=== PATIENT | male | born 1975 | race American Indian/Alaskan Native ===

== ENCOUNTER 2016-08-12 11:34 | Emergency (ER) | payer MEDICAID ==
[2016-08-12 11:35] VITALS: BMI 27.2
[2016-08-12 11:48] VITALS: O2SAT 98
--- NOTE | 2016-08-12 11:59 | C.PDOC ---
History Of Present Illness 41 yo male w/PMHx of HTN, pancreatitis come in for evaluation of left knee pain gradually developed for past 2-3 days. Pt reports, pain is localized, severe, worse with weight bearing, touching. Cheri BP noted on triage, pt admits, not compliant with his medication- Norvasc, saying " I dont have it no more". Otherwise, pt denies known direct trauma or injury, fever, chills, headache, dizziness, visual changes, focal deficits, CP, SOB, dyspnea, diaphoresis, palpitation, abd. pain, N/V, denies skin changes, weakness, deformity, sensory or vascular deficits to left leg. Time Seen by Provider: 08/12/16 11:48 Chief Complaint (Nursing): Lower Extremity Problem/Injury History Per: Patient Onset/Duration Of Symptoms: Gradual Severity: Severe Past Medical History Reviewed: Historical Data, Nursing Documentation, Vital Signs Vital Signs: Last Vital Signs Temp 97.8 F 08/12/16 12:42 Pulse 84 08/12/16 12:42 Resp 17 08/12/16 12:42 BP 163/105 H 08/12/16 13:17 Pulse Ox 98 08/12/16 12:42 - Medical History PMH: HTN, Pancreatitis - [facility] Procedures CL REDUC DISLOC-SHOULDER (08/14/13) IMMOBILIZ/WOUND ATTN NEC (08/14/13) INJECT/INFUSE NEC (08/14/13) Family History: States: No Known Family Hx - Social History Hx Tobacco Use: Yes Hx Alcohol Use: Yes Hx Substance Use: Yes (opiates, cannabionoid) - Immunization History Hx Tetanus Toxoid Vaccination: No Hx Influenza Vaccination: No Hx Pneumococcal Vaccination: No Review Of Systems Except As Marked, All Systems Reviewed And Found Negative. Constitutional: Negative for: Fever, Chills ENT: Negative for: Throat Pain Cardiovascular: Negative for: Chest Pain Respiratory: Negative for: Cough, Shortness of Breath Musculoskeletal: Positive for: Other (knee pain) Skin: Negative for: Rash, Bruising Neurological: Negative for: Weakness, Numbness, Altered Mental Status, Headache , Dizziness Physical Exam - Physical Exam Appears: Well, No Acute Distress Skin: Normal Color, Warm, Dry, No Rash, No Ecchymosis Eye(s): bilateral: PERRL Nose: No Flaring Oral Mucosa: Moist Throat: Normal Neck: Supple Cardiovascular: Rhythm Regular, No Friction Rub, No Murmur, No JVD Respiratory: No Stridor, No Wheezing Gastrointestinal/Abdominal: Soft, No Tenderness Back: No CVA Tenderness Extremity: No Normal ROM (moderate discomfort over left knee flexion/extension due to pain.), Tenderness (Moderate diffuse tenderness over Left knee associated with mild edema, warmth. No erythema, no palpable deformity, no calf tenderness.), No Pedal Edema, No Calf Tenderness (B/L lEs.), No Deformity Neurological/Psych: Normal Motor, Normal Sensation, Normal Reflexes ED Course And Treatment O2 Sat by Pulse Oximetry: 98 Pulse Ox Interpretation: Normal - Other Rad Left knee xray X-Ray: Interpreted by Me, Viewed By Me Interpretation: (+) proximal tibia calcification, mild DJD Progress Note: On re-evaluation, pt is afebrile, hemodynamiclay stable. NOn- toxic. Ambulatory in ED with stable gait. Neck: (-) JVD. Lungs: CTA B/L, BS equal B/L. CVS: (+)S1S2, reg. Abd: benign. Neurologicaly intact. XRay of Left knee review and results discussed with patient. Pt has clinical findings c /w Left knee arthralgia r/o gouty arthritis, HTN. Pt request refill on HTN medication. Pt denies any sx associated with HTN. Pt advised and ref. to f/u with PMD, Ortho in 2-3 days for re-eavl. return to ED if any worsening or new changes. Disposition Counseled Patient/Family Regarding: Studies Performed, Diagnosis, Need For Followup, Rx Given - Disposition Referrals: Kang March [Staff Provider] - Disposition: HOME/ ROUTINE Disposition Time: 12:27 Condition: STABLE Additional Instructions: Take medication as prescribed Light duty to Left knee Follow up with PMD and Orthopedist in 2-3 days for re-evaluation. Return to ED if any worsening or new changes. Prescriptions: amLODIPine [Norvasc] 10 mg PO DAILY #30 tab Indomethacin [Indocin] 50 mg PO BID #10 cap oxyCODONE/Acetaminophen [Percocet 5/325 mg Tab] 1 tab PO BID PRN #10 tab PRN Reason: Pain Prednisone [Deltasone] 40 mg PO DAILY #6 tablet Instructions: Gout (ED), Hypertension (ED) - Clinical Impression Clinical Impression: Gout, Hypertension
[2016-08-12] MEDS ORDERED: Oxycodone/Acetaminophen 5/325 mg Tab PO STA (12:01)
[2016-08-12] MEDS ORDERED: Oxycodone/Acetaminophen 5/325 mg Tab ONE (12:13)
[2016-08-12 12:43] VITALS: PULSE 84; RESP 17; TEMP 97.8
[2016-08-12 14:56] VITALS: BP 152/95
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
== END 2016-08-12 14:35 | disposition home or self-care (01) ==
LOC: C.ER 11:34
DX: M10.9 Gout, unspecified (principal); I10 Essential (primary) hypertension; Z72.0 Tobacco use

== ENCOUNTER 2017-09-17 16:15 | Inpatient (IN) | payer MEDICAID ==
[2017-09-17 16:16] VITALS: BMI 27.2
[2017-09-17] MEDS ORDERED: Sodium Chloride 0.9% 1,000 ML IV ONE (17:14)
[2017-09-17] MEDS ORDERED: Iohexol 240 (50 ml) PO STA (17:14)
[2017-09-17] MEDS ORDERED: Sodium Chloride 0.9% 1,000 ML ONE (17:23)
[2017-09-17] MEDS ORDERED: Iohexol 240 (50 ml) ONE (17:23)
[2017-09-17 17:36] LABS: BASO # 0.1 K/uL (0.0-0.2); BASO % 0.3 % (0.0-2.0); EOS # 0.1 K/uL (0.0-0.7); EOS % 0.5 % (0.0-4.0); LYMPH # 3.1 K/uL (1.0-4.3); LYMPH % 19.1 % (20.0-40.0); MEAN CORPUSCULAR HGB CONC 33.7 g/dL (33.0-37.0); MEAN PLATELET VOLUME 8.3 fL (7.2-11.7); MONO # 0.8 K/uL (0.0-0.8); MONO % 5.2 % (0.0-10.0); NEUT # 12.1 K/uL (1.8-7.0); NEUT % 74.9 % (50.0-75.0); NRBC % 0.8 % (0.0-2.0); RBC 5.55 Mil/uL (4.40-5.90); RED CELL DISTRIBUTION WIDTH 12.9 % (11.5-14.5)
[2017-09-17 17:37] LABS: ALB/GLOB RATIO 1.4 (1.0-2.1); ALBUMIN 4.8 g/dL (3.5-5.0); ALT/SGPT 30 U/L (21-72); AST/SGOT 36 U/L (17-59); BLOOD UREA NITROGEN 6 mg/dL (9-20); GFR AFRICAN-AMERICAN > 60; GFR NON-AFRICAN AMERICAN > 60; LIPASE 875 U/L (23-300)
[2017-09-17 17:39] LABS: WHITE BLOOD COUNT 16.2 K/uL (4.8-10.8)
[2017-09-17 17:40] LABS: HEMOGLOBIN 17.2 g/dL (12.0-18.0)
--- NOTE | 2017-09-17 18:01 | C.PDOC ---
History Of Present Illness 42yo male, comes to ER with complaints of epigastric abdominal pain x 2 days. Patient states he was evaluated at his PMD's office and given "a shot" with relief of pain. He states the pain has now returned, is associated with nausea and couple episodes of vomiting. He reports the pain is constant and worse with movement or standing up straight. He reports he has not passed gas and his bowel movement were normal until yesterday, he feels he may be constipated today. Patient denies any fever, chills, or chest pain. He states he had similar symptoms when he had gastritis but states this instance is much worse. Time Seen by Provider: 09/17/17 17:02 Chief Complaint (Nursing): Abdominal Pain History Per: Patient History/Exam Limitations: no limitations Onset/Duration Of Symptoms: Days Current Symptoms Are (Timing): Still Present Location Of Pain/Discomfort: Epigastric Quality Of Discomfort: "Pain" Associated Symptoms: Nausea, Vomiting. denies: Diarrhea, Back Pain, Chest Pain Past Medical History Reviewed: Historical Data, Nursing Documentation, Vital Signs Vital Signs: Last Vital Signs Temp 98.3 F 09/17/17 16:35 Pulse 74 09/17/17 17:31 Resp 20 09/17/17 17:31 BP 172/102 H 09/17/17 17:31 Pulse Ox 98 09/17/17 18:29 - Medical History PMH: HTN, Pancreatitis Surgical History: No Surg Hx - [facility] Procedures CL REDUC DISLOC-SHOULDER (08/14/13) IMMOBILIZ/WOUND ATTN NEC (08/14/13) INJECT/INFUSE NEC (08/14/13) Family History: States: No Known Family Hx - Social History Hx Tobacco Use: Yes Hx Alcohol Use: Yes Hx Substance Use: Yes (opiates, cannabionoid) - Immunization History Hx Tetanus Toxoid Vaccination: No Hx Influenza Vaccination: No Hx Pneumococcal Vaccination: No Review Of Systems Except As Marked, All Systems Reviewed And Found Negative. Constitutional: Negative for: Fever, Chills Cardiovascular: Negative for: Chest Pain Respiratory: Negative for: Shortness of Breath Gastrointestinal: Positive for: Nausea, Vomiting, Abdominal Pain Musculoskeletal: Negative for: Back Pain Physical Exam - Physical Exam Appears: Non-toxic, In Acute Distress Skin: Warm, Dry Head: Atraumatic, Normacephalic Eye(s): bilateral: Normal Inspection Oral Mucosa: Moist Neck: Normal ROM, Supple Chest: Symmetrical Cardiovascular: Rhythm Regular Respiratory: Normal Breath Sounds Gastrointestinal/Abdominal: Soft, Tenderness (epigastric, left sided and suprapubic tenderness.), Distention, No Guarding, No Rebound Back: Normal Inspection Extremity: Normal ROM, No Pedal Edema, No Deformity Neurological/Psych: Oriented x3 ED Course And Treatment - Laboratory Results Result Diagrams: 09/17/17 17:18 09/17/17 17:18 Lab Interpretation: Abnormal (WBC 16.2, Lipase 875) O2 Sat by Pulse Oximetry: 98 (RA) Pulse Ox Interpretation: Normal - Physician Consult Information Physician Contacted: Kaden March Outcome Of Conversation: Patient to be admitted for pancreatitis. Medical Decision Making Medical Decision Making: Impression: Abdominal pain, r/o pancreatitis Plan: -- Labs -- Urinalysis -- CT Abdomen/pelvis w/ contrast -- IV Fluids -- Zofran 4mg IVP Progress: 1746 Labs reviewed, patient with elevated lipase and white count. Case discussed with Dr. March and patient admitted under his service. Disposition - Disposition Disposition: HOSPITALIZED Disposition Time: 18:31 Condition: STABLE - Clinical Impression Clinical Impression: Acute pancreatitis - Scribe Statement The provider has reviewed the documentation as recorded by the Scribe (Ibeth Smith) Provider Attestation: All medical record entries made by the Scribe were at my direction and personally dictated by me. I have reviewed the chart and agree that the record accurately reflects my personal performance of the history, physical exam, medical decision making, and the department course for this patient. I have also personally directed, reviewed, and agree with the discharge instructions and disposition.
[2017-09-17] MEDS ORDERED: Iohexol 300 100 ML IJ ONE (18:16)
--- NOTE | 2017-09-17 20:48 | CT ---
EXAM: CT Abdomen and Pelvis With Intravenous Contrast EXAM DATE/TIME: Exam ordered 09/17/2017 5:15 PM CLINICAL HISTORY: 42 years old, male; Pain; Abdominal pain; Generalized; Additional info: Abd pain TECHNIQUE: Axial computed tomography images of the abdomen and pelvis with intravenous contrast. All CT scans at this facility use at least one of these dose optimization techniques: automated exposure control; mA and/or kV adjustment per patient size (includes targeted exams where dose is matched to clinical indication); or iterative reconstruction. Coronal and sagittal reformatted images were created and reviewed. CONTRAST: 100 mL of omnipaque 320 administered intravenously. COMPARISON: No relevant prior studies available. FINDINGS: Lung bases: Unremarkable. No mass. No consolidation. ABDOMEN: Liver: Unremarkable. No mass. Gallbladder and bile ducts: Unremarkable. No calcified stones. No ductal dilation. Pancreas: Edema is noted within the fat surrounding the pancreatic tail. Small amount of fluid extends along the left paracolic gutter and anterior pararenal space on the left the prostate measures 3 x 4.4 x 4.2 cm. No ductal dilation. Spleen: Unremarkable. No splenomegaly. Adrenals: Unremarkable. No mass. Kidneys and ureters: Unremarkable. No solid mass. No hydronephrosis. Stomach and bowel: Unremarkable. No obstruction. No mucosal thickening. PELVIS: Appendix: No findings to suggest acute appendicitis. Bladder: Unremarkable. No mass. Reproductive: Unremarkable as visualized. ABDOMEN and PELVIS: Intraperitoneal space: Unremarkable. No free air. No significant fluid collection. Bones/joints: No acute fracture. No dislocation. Soft tissues: Unremarkable. Vasculature: Unremarkable. No abdominal aortic aneurysm. Lymph nodes: Unremarkable. No enlarged lymph nodes. IMPRESSION: 1. Pancreatitis. No abscess. No pseudocyst. The portal vein and splenic vein opacify normally
[2017-09-17] MEDS: Dextrose 5%/0.45% NS 1,000 ML IV SCH (22:45)
[2017-09-17] MEDS: HYDROmorphone 0.5 mg/0.5 ml ISec IVP PRN (22:50)
[2017-09-18] MEDS: HYDROmorphone 0.5 mg/0.5 ml ISec IVP PRN ×5 (04:12→21:12)
[2017-09-18] MEDS: Dextrose 5%/0.45% NS 1,000 ML IV SCH ×4 (05:40→21:15)
--- NOTE | 2017-09-18 07:45 | CP.PCM.PN ---
Subjective - Date & Time of Evaluation Date of Evaluation: 09/18/17 Time of Evaluation: 07:45 - Subjective Subjective: Medicine progress note for Dr. March's service Patient is a 42 year old male with PMHx of hypertension and alcohol abuse who presented to the ER with complaint of epigastric abdominal pain. Patient reports he went to his PMD's office on Friday due to epigastric pain and was given a toradol shot, prescription for omeprazole, and a laxative medication he cannot recall. Patient states that his pain did not improve which prompted his ER visit. Patient reports similar presentation approximately one year ago. He states at that time he had been drinking heavily and was diagnosed with pancreatitis. Patient reports that after that episode he decreased his drinking until two weeks ago. Patient states he has been drinking 1/2 pint vodka and two beers daily for the past two weeks. He reports last drink was on 09/14/17. He denies history of withdrawal seizures. Patient currently states abdominal pain has decreased, he denies nausea, vomiting, diarrhea. He reports no bowel movement for two days but denies constipation. Patient also admits to not taking blood pressure medication for several weeks. Objective - Vital Signs/Intake and Output Vital Signs (last 24 hours): Temp Pulse Resp BP Pulse Ox 98.2 F 67 20 173/108 H 97 09/18/17 07:35 09/18/17 07:35 09/18/17 07:35 09/18/17 06:00 09/18/17 07:35 Intake and Output: 09/18/17 09/18/17 06:59 18:59 Intake Total 1200 Output Total 600 Balance 600 - Medications Medications: Current Medications Amlodipine Besylate (Norvasc) 10 mg PO DAILY [facility] Enoxaparin Sodium (Lovenox) 40 mg SC DAILY [facility] Hydromorphone HCl (Dilaudid) 0.5 mg IVP Q4H PRN PRN Reason: Pain, moderate (4-7) Last Admin: 09/18/17 04:12 Dose: 0.5 mg Dextrose/Sodium Chloride (Dextrose 5%/0.45% Ns 1000 Ml) 1,000 mls @ 150 mls/hr IV .Q6H40M [facility] Last Admin: 09/18/17 05:40 Dose: 150 mls/hr Pantoprazole Sodium (Protonix Inj) 40 mg IVP DAILY [facility] Pneumococcal Polyvalent Vaccine (Pneumovax 23 Vaccine) 0.5 ml IM .ONCE ONE Stop: 09/19/17 08:01 - Labs Labs: 09/17/17 17:18 09/17/17 17:18 - Constitutional Appears: No Acute Distress - Head Exam Head Exam: ATRAUMATIC, NORMOCEPHALIC - Eye Exam Eye Exam: EOMI, Scleral icterus (mild b/l) - ENT Exam ENT Exam: Mucous Membranes Moist - Respiratory Exam Respiratory Exam: Clear to Ausculation Bilateral, NORMAL BREATHING PATTERN - Cardiovascular Exam Cardiovascular Exam: +S1, +S2 - GI/Abdominal Exam GI & Abdominal Exam: Soft, Tenderness (epigastric), Normal Bowel Sounds - Extremities Exam Extremities Exam: Normal Inspection. absent: Pedal Edema - Neurological Exam Neurological Exam: Alert, Awake - Psychiatric Exam Psychiatric exam: Normal Affect - Skin Skin Exam: Warm Assessment and Plan - Assessment and Plan (Free Text) Assessment: Acute pancreatitis NPO IVF with N5 1/2 NS @ 150cc/h WBC 16.2 on admission, now 11.8 Dr. Smith, GI, consulted- help appreciated start flagyl 500mg IV q8h reglan 5mg IV q8h Lipase on admission 875, today is 720 CT abdomen: pancreatitis. no abscess, no pseudocyst. portal vein and splenic vein opacify normally (see full report) Hypertension restart home medication norvasc 10mg PO daily Alcohol Abuse thiamine 100mg PO daily, multivitamin daily ativan 1mg IV q4prn withdrawal CIWA/ seizure precautions Prophylactic measure lovenox 40mg sc daily All management as per Dr. March
[2017-09-18 07:54] LABS: URINE CLARITY Clear (Clear); URINE COLOR YELLOW (YELLOW); URINE GLUCOSE (UA) Normal (Normal)
[2017-09-18 07:55] LABS: URINE BILIRUBIN NEGATIVE (NEGATIVE); URINE BLOOD 2+ (NEGATIVE); URINE PROTEIN NEGATIVE (NEGATIVE); URINE UROBILINOGEN Normal mg/dL (0.2-1.0)
[2017-09-18 07:56] LABS: SQUAMOUS EPITHIAL 1 /hpf (0-5); URINE BACTERIA RARE (<OCC); URINE LEUKOCYTE ESTERASE 2+ Leu/uL (Negative)
[2017-09-18 08:05] LABS: HEMOGLOBIN 15.5 g/dL (12.0-18.0); MEAN CELL VOLUME 92.7 fL (80.0-94.0); MEAN CORPUSCULAR HEMOGLOBIN 31.1 pg (27.0-31.0); MEAN CORPUSCULAR HGB CONC 33.5 g/dL (33.0-37.0); MEAN PLATELET VOLUME 8.2 fL (7.2-11.7); RBC 4.99 Mil/uL (4.40-5.90); RED CELL DISTRIBUTION WIDTH 12.7 % (11.5-14.5); WHITE BLOOD COUNT 11.8 K/uL (4.8-10.8)
[2017-09-18 08:49] LABS: ALB/GLOB RATIO 1.4 (1.0-2.1); ALBUMIN 4.1 g/dL (3.5-5.0); ALT/SGPT 27 U/L (21-72); AMYLASE 190 U/L (30-110); AST/SGOT 24 U/L (17-59); BLOOD UREA NITROGEN 5 mg/dL (9-20); CALCIUM 9.2 mg/dl (8.6-10.4); GFR AFRICAN-AMERICAN > 60; GFR NON-AFRICAN AMERICAN > 60; LIPASE 720 U/L (23-300)
[2017-09-18] MEDS ORDERED: Potassium Chloride 20 mEq ER Tab PO ONE (09:10)
[2017-09-18] MEDS: metroNIDAZOLE IV 500 mg/100 ml 500 MG/100 ML BAG IVPB SCH ×2 (09:35→16:39)
[2017-09-18] MEDS: Enoxaparin 40 mg Syringe SC SCH (09:35)
[2017-09-18] MEDS: Multiple Vitamins Tab PO SCH (11:56)
--- NOTE | 2017-09-18 13:55 | PN ---
DATE: 09/18/2017 LOCATION: 369, bed B. SUBJECTIVE: This is a 42-year-old male, seen initially for GI consultation on 09/17/2017 as requested by the admitting MD, reexamined again today with intermittent period of mild abdominal pain, generalized weakness and malaise. He is still n.p.o. No reported chest pain, palpitation, significant shortness of breath, chills or fever. The entire chart is reviewed including but not limited to the most recent lab and radiology study results. Current and the previous medication list, current and the previous medical events, and today's lab showed leukocytosis of 11.8 with normal hemoglobin and hematocrit and the latest lipase with 875. Abdominal and pelvic CAT scan done yesterday, official report is seen indicative of acute pancreatitis. PHYSICAL EXAMINATION: GENERAL: A 42-year-old male awake, alert, orientated. VITAL SIGNS: Afebrile with pulse of 70, respiratory rate 20 to 22, blood pressure of 166/98. HEENT: Showed pale, dry oral mucous membrane. Nonicteric sclerae. LUNGS: Few scattered crepitation. Decreased air entry at bases. HEART: Positive S1 and S2 with increased rate. ABDOMEN: Soft. Bowel sounds are present. No masses or organomegaly. No rebound tenderness or guarding. The patient experienced severe episodes of nausea during my physical examination. EXTREMITIES: Without edema, clubbing, or cyanosis. NEUROLOGICAL: No reported new neurological deficit, sensory or motor. IMPRESSION: 1. Acute pancreatitis, most likely alcohol induced. 2. Poorly-controlled hypertension. 3. Re-exacerbation of peptic ulcer disease. 4. Leukocytosis of unclear etiology. SUGGESTION: 1. Agree with your plan. 2. Lipid profile. 3. Repeat serum lipase, amylase level and keep the patient n.p.o. until it is normal or near normal. Further evaluation with recommendation to follow. 4. If the patient symptoms persist including recurrent episodes of nausea and vomiting, then upper endoscopy to be kept in mind. Otherwise, only medical treatment. 5. May add Reglan IV 5 mg every 8 hours for the following 48 to 72 hours. Franci Stoner MD [facility] # [id number]
[2017-09-19] MEDS: Dextrose 5%/0.45% NS 1,000 ML IV SCH ×5 (00:55→20:12)
[2017-09-19] MEDS: metroNIDAZOLE IV 500 mg/100 ml 500 MG/100 ML BAG IVPB SCH ×3 (01:01→16:20)
[2017-09-19] MEDS: HYDROmorphone 0.5 mg/0.5 ml ISec IVP PRN ×3 (01:15→09:53)
--- NOTE | 2017-09-19 06:40 | CON ---
DATE: 09/17/[address] Stoner to Dr. Kaden March. HISTORY OF PRESENT ILLNESS: I was called for GI consultation by the admitting MD. The patient is seen and fully examined on 09/17/2017 as requested by the admitting MD. The entire chart is reviewed including but not limited to the most recent lab and radiology study result, current and previous medication list, current and previous medical events, allergies to medication list as well as all the available current and previous medical records. Case was discussed with the staff pre and post my GI consultation on 09/17/2017 with the medical team. This is a 42 years old male who was admitted to the hospital through the emergency room due to severe epigastric pain for the last 48 to 72 hours prior to his admission post excessive alcohol intake. No reported active bleeding. No actual chest pain, palpitations, significant shortness of breath, chills or fever. PAST MEDICAL HISTORY: 1. Peptic ulcer disease. 2. Hypertension. 3. Recurrent pancreatitis, which could be related to alcohol intake. CURRENT MEDICATIONS: Both admission medication list reviewed. FAMILY HISTORY: Unknown. SOCIAL HISTORY: Positive for cigarette smoking and excessive alcohol intake. After being admitted to the hospital the patient was found to have leukocytosis of 16.2 with potassium 3.5, decreased BUN and creatinine with serum lipase level above 700 or so. PHYSICAL EXAMINATION: GENERAL: A 42 years old male appeared to be awake, alert. VITAL SIGNS: Afebrile with pulse of 70, respiratory rate 20 to 22, blood pressure of 168/100. HEENT: Showed mildly dry oral mucous membrane. Anicteric sclerae. LYMPH NODES: No lymphadenitis or lymphadenopathy. LUNGS: Few scattered bilateral crepitation with decreased air entry at bases. HEART: Positive S1 and S2. ABDOMEN: Soft with slight generalized tenderness and mild distention. No mass or organomegaly. No rebound tenderness or guarding. RECTAL: The patient refused. EXTREMITIES: Without significant edema, clubbing or cyanosis. IMPRESSION: 1. Reexacerbation of pancreatitis most likely alcohol induced. 2. To rule out reexacerbation of peptic ulcer disease with possible gastric versus duodenal ulcers. 3. Poorly-controlled hypertension. 4. Leukocytosis of unclear etiology. 5. Electrolyte imbalance with hypokalemia. SUGGESTIONS: 1. Agree with your plan. 2. Rehydration. 3. Proton pump inhibitors. 4. Keep n.p.o. until serum lipase and amylase level are normal or less normal. 5. Continue current medication. 6. . 7. Cancer markers. 8. Pain management consultation due to the patient persistent complaint of lower back pain. 9. The patient to be scheduled for upper endoscopy as there is a drop of the hemoglobin and hematocrit. Will discuss the case at length with you. Thank you for letting me to participate in your patient's case management. Franci Stoner MD
--- NOTE | 2017-09-19 06:42 | HP ---
SUBJECTIVE: A 42-year-old man with history of pancreatitis, history of alcohol abuse, who has got severe abdominal pain, increasing pain over the last 3 days. The patient came to the ER, pelvic ultrasound obtained, advised admission for pancreatitis. The patient with hypertension, he is not compliant. PHYSICAL EXAMINATION: GENERAL: The patient is awake, alert. VITAL SIGNS: Blood pressure 170/110, pulse is 90. HEENT: Within normal limits. NECK: Supple. CHEST: Symmetrical. HEART: Regular. ABDOMEN: Soft. EXTREMITIES: No edema. IMPRESSION: Acute pancreatitis, hypertension, abdominal pain, alcohol abuse. At this point, the patient to get bed rest, n.p.o., IV fluid, pain medication. Kaden March MD
--- NOTE | 2017-09-19 07:40 | CP.PCM.PN ---
Subjective - Date & Time of Evaluation Date of Evaluation: 09/19/17 Time of Evaluation: 07:50 - Subjective Subjective: PGY 3 Medicine Progress Note- Dr. March's service Patient seen and examined in no apparent acute distress. Per nursing, patient complained of pruritus. Patient states that he was tolerating clears yesterday. He admits to some abdominal pain which is improved with the pain medication. He admits to passing gas. He has not had a formed bowel movement. He is ambulating. He denies fevers, chills, chest pain , nausea or vomiting at this time. Objective - Vital Signs/Intake and Output Vital Signs (last 24 hours): Temp Pulse Resp BP Pulse Ox 98.6 F 65 20 154/94 H 100 09/19/17 00:00 09/19/17 00:00 09/19/17 00:00 09/19/17 00:00 09/19/17 00:00 Intake and Output: 09/19/17 09/19/17 06:59 18:59 Intake Total 2850 Output Total 750 Balance 2100 - Medications Medications: Current Medications Amlodipine Besylate (Norvasc) 10 mg PO DAILY [facility] Last Admin: 09/18/17 09:34 Dose: 10 mg Enoxaparin Sodium (Lovenox) 40 mg SC DAILY [facility] Last Admin: 09/18/17 09:35 Dose: 40 mg Hydromorphone HCl (Dilaudid) 0.5 mg IVP Q4H PRN PRN Reason: Pain, severe (8-10) Last Admin: 09/19/17 05:40 Dose: 0.5 mg Dextrose/Sodium Chloride (Dextrose 5%/0.45% Ns 1000 Ml) 1,000 mls @ 150 mls/hr IV .Q6H40M [facility] Last Admin: 09/19/17 05:15 Dose: 150 mls/hr Metronidazole (Flagyl) 500 mg in 100 mls @ 100 mls/hr IVPB Q8H [facility] PRN Reason: Protocol Last Admin: 09/19/17 01:01 Dose: 100 mls/hr Lorazepam (Ativan) 1 mg IVP Q4H PRN PRN Reason: Symptoms of alcohol withdrawl Metoclopramide HCl (Reglan) 5 mg IVP Q8H [facility] Last Admin: 09/19/17 01:02 Dose: 5 mg Morphine Sulfate (Morphine) 2 mg IVP Q4 PRN PRN Reason: Pain, moderate (4-7) Multivitamins (Hexavitamin) 1 tab PO DAILY [facility] Last Admin: 09/18/17 11:56 Dose: 1 tab Pantoprazole Sodium (Protonix Inj) 40 mg IVP DAILY [facility] Last Admin: 09/18/17 09:34 Dose: 40 mg Pneumococcal Polyvalent Vaccine (Pneumovax 23 Vaccine) 0.5 ml IM .ONCE ONE Stop: 09/19/17 08:01 Thiamine HCl (Vitamin B1 Tab) 100 mg PO DAILY [facility] Last Admin: 09/18/17 11:56 Dose: 100 mg - Labs Labs: 09/18/17 07:41 09/18/17 07:41 - Constitutional Appears: Non-toxic, No Acute Distress - Head Exam Head Exam: ATRAUMATIC, NORMAL INSPECTION - Eye Exam Eye Exam: EOMI, Normal appearance - ENT Exam ENT Exam: Mucous Membranes Moist - Neck Exam Neck Exam: Full ROM - Respiratory Exam Respiratory Exam: NORMAL BREATHING PATTERN - Cardiovascular Exam Cardiovascular Exam: +S1, +S2 - GI/Abdominal Exam GI & Abdominal Exam: Soft, Tenderness (epigastric to LUQ region), Normal Bowel Sounds. absent: Distended, Guarding, Rigid - Extremities Exam Extremities Exam: Full ROM, Normal Capillary Refill. absent: Tenderness - Back Exam Back Exam: Full ROM - Neurological Exam Neurological Exam: Alert, Awake, Oriented x3 - Psychiatric Exam Psychiatric exam: Normal Affect, Normal Mood - Skin Skin Exam: Dry, Normal Color, Warm Assessment and Plan - Assessment and Plan (Free Text) Assessment: Acute pancreatitis Previously tolerating clears. Now NPO in anticipation for EGD. IVF with D5 1/2 NS @ 150cc/h WBC 16.2 on admission, normalized today Pain Control- Morphine PRN Dr. Smith, GI, consulted - Considerations for EGD today start flagyl 500mg IV q8h reglan 5mg IV q8h Lipase on admission 875, but downtrending. CT abdomen: pancreatitis. no abscess, no pseudocyst. portal vein and splenic vein opacify normally (see full report) Hypertension Norvasc 10mg PO daily Manage pain. Monitor Alcohol Abuse Thiamine 100mg PO daily, multivitamin daily Ativan 1mg IV q4prn withdrawal CIWA/ seizure precautions Prophylactic measure Lovenox 40mg sc daily PPI daily All management as per Dr. March.
[2017-09-19] MEDS ORDERED: Pneumococcal 23-Valent Vaccine IM ONE (08:00)
[2017-09-19 08:08] LABS: BASO % 0.4 % (0.0-2.0); EOS # 0.2 K/uL (0.0-0.7); EOS % 2.3 % (0.0-4.0); HEMOGLOBIN 14.9 g/dL (12.0-18.0); LYMPH # 2.2 K/uL (1.0-4.3); LYMPH % 27.8 % (20.0-40.0); MEAN CELL VOLUME 93.6 fL (80.0-94.0); MEAN CORPUSCULAR HGB CONC 34.2 g/dL (33.0-37.0); MONO # 0.6 K/uL (0.0-0.8); NEUT % 62.5 % (50.0-75.0); NRBC % 0.2 % (0.0-2.0); RBC 4.67 Mil/uL (4.40-5.90); RED CELL DISTRIBUTION WIDTH 12.9 % (11.5-14.5)
[2017-09-19 08:29] LABS: ALB/GLOB RATIO 1.4 (1.0-2.1); ALT/SGPT 29 U/L (21-72); AST/SGOT 24 U/L (17-59); BLOOD UREA NITROGEN 4 mg/dL (9-20); CALCIUM 9.3 mg/dl (8.6-10.4); GFR AFRICAN-AMERICAN > 60; GFR NON-AFRICAN AMERICAN > 60
[2017-09-19] MEDS: Multiple Vitamins Tab PO SCH (09:56)
[2017-09-19] MEDS: Enoxaparin 40 mg Syringe SC SCH (09:56)
[2017-09-19] MEDS ORDERED: DiphenhydrAMINE 50 mg/ml Inj IVP ONE (11:00)
[2017-09-19] MEDS ORDERED: Propofol 10 mg/ml Inj (20 ML) ONE (14:27)
[2017-09-19] MEDS ORDERED: Lactated Ringer's 1,000 ML IV ONE ×2 (14:29)
[2017-09-19 16:20] VITALS: RESP 20
[2017-09-20] MEDS: HYDROmorphone 0.5 mg/0.5 ml ISec IVP PRN (00:06)
[2017-09-20] MEDS: metroNIDAZOLE IV 500 mg/100 ml 500 MG/100 ML BAG IVPB SCH ×2 (01:06→10:00)
[2017-09-20] MEDS: Dextrose 5%/0.45% NS 1,000 ML IV SCH ×2 (04:20→10:00)
[2017-09-20 06:44] LABS: AMYLASE 83 U/L (30-110); LIPASE 503 U/L (23-300)
--- NOTE | 2017-09-20 09:41 | PN ---
DATE: 09/20/2017 LOCATION: [address]. SUBJECTIVE: This is a 42 years old male post upper endoscopy with biopsy seen and examined in rounds. Appeared to be awake, alert, and oriented, somewhat tolerating diet with intermittent period of mild abdominal pain. The entire chart is reviewed including, but not limited to the most recent lab and radiology study results, current and previous medication list, current and previous medical events. Today's lab showed amylase of 83 normal with lipase went down to 503 with increased CEA level to 7.6, which could be secondary to his liver dysfunction secondary to chronic alcoholism. PHYSICAL EXAMINATION: GENERAL: A 42 years old male, awake, alert, oriented. VITAL SIGNS: Afebrile with pulse of 70, respiratory rate 18 to 20, blood pressure 140/84. HEENT: Showed pale, dry, oral mucous membrane, nonicteric sclera. LUNGS: Few scattered crepitation, decreased air entry at bases. HEART: Positive S1 and S2. ABDOMEN: Soft with slight generalized tenderness. No mass or organomegaly. No rebound tenderness or guarding. EXTREMITIES: Without edema, clubbing or cyanosis. IMPRESSION: 1. Acute pancreatitis, most likely alcohol induced. 2. Peptic ulcer disease. 3. Poorly controlled hypertension. SUGGESTIONS: 1. Continue current management. 2. Due to the patient's increased CEA level, however, colonoscopy showed be kept in mind if the patient is to be well prepared during this admission otherwise as outpatient. 3. Repeat lipase level. 4. Further recommendation to follow. Franci Stoner MD
[2017-09-20] MEDS: Enoxaparin 40 mg Syringe SC SCH (10:00)
[2017-09-20] MEDS: Multiple Vitamins Tab PO SCH (10:33)
[2017-09-20 11:54] VITALS: BP 157/98; PULSE 75; TEMP 98; O2SAT 98
--- NOTE | 2017-09-20 11:54 | CP.PCM.PN ---
Subjective - Date & Time of Evaluation Date of Evaluation: 09/20/17 Time of Evaluation: 11:35 - Subjective Subjective: [employer] NOTES Objective - Vital Signs/Intake and Output Vital Signs (last 24 hours): Temp Pulse Resp BP Pulse Ox 98.3 F 74 20 144/92 H 96 09/19/17 23:30 09/19/17 23:30 09/19/17 23:30 09/19/17 23:30 09/19/17 23:30 Intake and Output: 09/20/17 09/20/17 06:59 18:59 Intake Total 3050 Output Total 600 Balance 2450 - Medications Medications: Current Medications Amlodipine Besylate (Norvasc) 10 mg PO DAILY [facility] Last Admin: 09/20/17 10:33 Dose: 10 mg Enoxaparin Sodium (Lovenox) 40 mg SC DAILY [facility] Last Admin: 09/19/17 09:56 Dose: Not Given Hydromorphone HCl (Dilaudid) 0.5 mg IVP Q4H PRN PRN Reason: Pain, severe (8-10) Last Admin: 09/20/17 00:06 Dose: 0.5 mg Dextrose/Sodium Chloride (Dextrose 5%/0.45% Ns 1000 Ml) 1,000 mls @ 150 mls/hr IV .Q6H40M [facility] Last Admin: 09/20/17 04:20 Dose: 150 mls/hr Metronidazole (Flagyl) 500 mg in 100 mls @ 100 mls/hr IVPB Q8H [facility] PRN Reason: Protocol Last Admin: 09/20/17 10:00 Dose: 100 mls/hr Lorazepam (Ativan) 1 mg IVP Q4H PRN PRN Reason: Symptoms of alcohol withdrawl Metoclopramide HCl (Reglan) 5 mg IVP Q8H [facility] Last Admin: 09/20/17 10:33 Dose: Not Given Morphine Sulfate (Morphine) 2 mg IVP Q4 PRN PRN Reason: Pain, moderate (4-7) Last Admin: 09/20/17 04:48 Dose: 2 mg Multivitamins (Hexavitamin) 1 tab PO DAILY [facility] Last Admin: 09/20/17 10:33 Dose: 1 tab Pantoprazole Sodium (Protonix Inj) 40 mg IVP DAILY [facility] Last Admin: 09/20/17 10:30 Dose: 40 mg Thiamine HCl (Vitamin B1 Tab) 100 mg PO DAILY [facility] Last Admin: 09/20/17 10:33 Dose: 100 mg - Labs Labs: 09/19/17 08:02 09/19/17 08:02 Assessment and Plan - Assessment and Plan (Free Text) Assessment: 42 yr old male with pmhx of HTN, admitted with Abdominal pain,N/V/ pancreatitis s/p EGD- see full report for details lipase trending down - [phone] Patient tolerating regular diet seen by Dr. Asad tapia today, cleared for discharge home today with PPI Discharge plan discussed with patient who understands agrees with plan RX given
== END 2017-09-20 13:45 | disposition home or self-care (01) | DRG 204 ==
LOC: C.ER 16:15 → C.9E 17:46 → C.3T 21:07
PROVIDERS: ADMIT Internal Medicine Pulmonary Disease; ATTEND Internal Medicine Pulmonary Disease
PROC: 0DB68ZX Excision of Stomach, Via Natural or Artificial Opening Endoscopic, Diagnostic (ICD-10-PCS; principal; 2017-09-19 14:30)
DX: K85.20 Alcohol induced acute pancreatitis without necrosis or infection (principal); E87.6 Hypokalemia; F10.20 Alcohol dependence, uncomplicated; F17.210 Nicotine dependence, cigarettes, uncomplicated; I10 Essential (primary) hypertension; L29.9 Pruritus, unspecified; K76.89 Other specified diseases of liver; Z87.11 Personal history of peptic ulcer disease; K29.70 Gastritis, unspecified, without bleeding; K20.9 Esophagitis, unspecified

== ENCOUNTER 2018-05-02 14:10 | Emergency (ER) | payer MEDICAID ==
[2018-05-02 14:11] VITALS: BMI 27.2
--- NOTE | 2018-05-02 14:29 | C.PDOC ---
History Of Present Illness 42 year old male with a PMHx of alcoholic pancreatitis, gastric ulcer, esophagitis, and hypertension presents to the ER complaining of abdominal pain for x2 days. Pt reports x2 days ago, he drank cough syrup and believed that triggered his pancreatitis. Pt notes he had pancreatitis before and the current sx feels the same. Pt was seen by PMD, Dr March, and was given Tramadol and "a shot" but sx persists. Pt denies diarrhea, vomiting, dysuria, testicular pain, back pain and fever. Patient had ECG biopsy done on 09/19/17, which showed gastritis, esophagitis, no varices and duodenal ulcer. Patient also smokes a pack a day and uses marijuana. Patient didnt take BP medication today. Time Seen by Provider: 05/02/18 14:27 Chief Complaint (Nursing): Abdominal Pain History Per: Patient History/Exam Limitations: no limitations Onset/Duration Of Symptoms: Days (x3) Current Symptoms Are (Timing): Still Present Location Of Pain/Discomfort: Epigastric Past Medical History Reviewed: Historical Data, Nursing Documentation, Vital Signs Vital Signs: Last Vital Signs Temp 98.7 F 05/02/18 14:15 Pulse 74 05/02/18 14:15 Resp 18 05/02/18 14:15 BP 175/112 H 05/02/18 14:15 Pulse Ox 99 05/02/18 14:15 - Medical History PMH: HTN, Pancreatitis (x3) Surgical History: Hernia Repair - [facility] Procedures CL REDUC DISLOC-SHOULDER (08/14/13) EXCISION OF STOMACH, ENDO, DIAGN (09/17/17) IMMOBILIZ/WOUND ATTN NEC (08/14/13) INJECT/INFUSE NEC (08/14/13) Family History: States: Unknown Family Hx - Social History Hx Tobacco Use: Yes Hx Alcohol Use: Yes Hx Substance Use: Yes (WEEDS) - Immunization History Hx Tetanus Toxoid Vaccination: No Hx Influenza Vaccination: No Hx Pneumococcal Vaccination: No Review Of Systems Except As Marked, All Systems Reviewed And Found Negative. Constitutional: Negative for: Fever Gastrointestinal: Positive for: Abdominal Pain. Negative for: Vomiting, Diarrhea Genitourinary: Negative for: Dysuria, Scrotal Pain Musculoskeletal: Negative for: Back Pain Physical Exam - Physical Exam Appears: Non-toxic, No Acute Distress Skin: Warm, Dry Head: Atraumatic, Normacephalic Eye(s): bilateral: Normal Inspection, EOMI Nose: Normal Oral Mucosa: Moist Neck: Normal ROM, Supple Chest: Symmetrical Cardiovascular: Rhythm Regular Respiratory: Normal Breath Sounds, No Rales, No Rhonchi, No Wheezing Gastrointestinal/Abdominal: Soft, Tenderness (epigastric ), No Guarding, No Rebound Back: No CVA Tenderness Extremity: Normal ROM (x4) Neurological/Psych: Oriented x3, Normal Speech, Normal Cognition ED Course And Treatment - Laboratory Results Result Diagrams: 05/02/18 14:51 05/02/18 14:51 O2 Sat by Pulse Oximetry: 99 (RA) Pulse Ox Interpretation: Normal Progress Note: -- morphine. -- Norvasc. -- protonix. -- toradol. -- IV fluids. On re-evaluation, pt notes pain improved and declines repeating CT since he had one last month. Pt also states he does not want to stay in hospital and requests additional medication and to be d/c. Morphine 2mg was ordered to give to patient. Reassess: Patient reports pain improved. Tolerating PO and is afebrile; request to be d/c. RBC in US noted. No signs of infection. No stones on previous stones. Discuss results of work up of hematuria and elevated wbc to patient. Patient reports he will return if coniditon persists or worsens. Case discussed with Dr Starks, agreed upon plan and discharge. Case discuss with Dr. March and he agrees plan and discharge. Disposition - Disposition Referrals: Kaden March MD [Staff Provider] - Francis Guardado MD [Staff Provider] - Disposition: HOME/ ROUTINE Disposition Time: 17:51 Condition: STABLE Additional Instructions: Follow up with your PMD and urologist in 1-2 days. Return tto ER if symptoms persist or worsen. Instructions: Pancreatitis, Blood in the Urine (Hematuria), Adult (DC) Forms: [employer] (Setswana) - Clinical Impression Clinical Impression: Hematuria, Abdominal pain - PA / [employer] / Resident Statement / has reviewed & agrees with the documentation as recorded. - Scribe Statement The provider has reviewed the documentation as recorded by the Pari Deshpande Do All medical record entries made by the Scribe were at my direction and personally dictated by me. I have reviewed the chart and agree that the record accurately reflects my personal performance of the history, physical exam, medical decision making, and the department course for this patient. I have also personally directed, reviewed, and agree with the discharge instructions and disposition.
[2018-05-02] MEDS ORDERED: Sodium Chloride 0.9% 1,000 ML IV ONE (14:46)
[2018-05-02 14:54] LABS: BASO # 0.2 K/uL (0.0-0.2); BASO % 1.1 % (0.0-2.0); EOS # 0.1 K/uL (0.0-0.7); EOS % 0.8 % (0.0-4.0); HEMOGLOBIN 16.7 g/dL (12.0-18.0); LYMPH # 2.7 K/uL (1.0-4.3); MEAN CELL VOLUME 93.9 fL (80.0-94.0); MEAN CORPUSCULAR HEMOGLOBIN 31.7 pg (27.0-31.0); MEAN CORPUSCULAR HGB CONC 33.8 g/dL (33.0-37.0); MEAN PLATELET VOLUME 8.2 fL (7.2-11.7); MONO # 0.5 K/uL (0.0-0.8); MONO % 3.7 % (0.0-10.0); NEUT # 10.8 K/uL (1.8-7.0); NEUT % 75.4 % (50.0-75.0); RBC 5.26 Mil/uL (4.40-5.90); RED CELL DISTRIBUTION WIDTH 12.9 % (11.5-14.5); WHITE BLOOD COUNT 14.4 K/uL (4.8-10.8)
[2018-05-02 15:06] LABS: ALB/GLOB RATIO 1.4 (1.0-2.1); ALBUMIN 4.9 g/dL (3.5-5.0); ALT/SGPT 26 U/L (21-72); AST/SGOT 30 U/L (17-59); BLOOD UREA NITROGEN 5 mg/dL (9-20); CALCIUM 9.7 mg/dl (8.6-10.4); GFR NON-AFRICAN AMERICAN > 60; LIPASE 218 U/L (23-300)
[2018-05-02] MEDS ORDERED: Sodium Chloride 0.9% 1,000 ML ONE (15:17)
[2018-05-02] MEDS ORDERED: Morphine 4 MG/ML VIAL ONE (15:37)
[2018-05-02 16:51] LABS: SQUAMOUS EPITHIAL 6 /hpf (0-5); URINE BACTERIA RARE (<OCC); URINE BILIRUBIN NEGATIVE (NEGATIVE); URINE BLOOD 3+ (NEGATIVE); URINE CLARITY Hazy (Clear); URINE COLOR Yellow (YELLOW); URINE GLUCOSE (UA) NORMAL (Normal); URINE HYALINE CAST 0-2 /lpf (0-2); URINE LEUKOCYTE ESTERASE TRACE Leu/uL (Negative); URINE PROTEIN NEGATIVE (NEGATIVE); URINE UROBILINOGEN NORMAL mg/dL (0.2-1.0)
[2018-05-02 17:48] VITALS: BP 169/97; PULSE 70; RESP 18; TEMP 98.5
[2018-05-02 17:53] VITALS: O2SAT 99
== END 2018-05-02 18:30 | disposition home or self-care (01) ==
LOC: C.ER 14:10
DX: R31.9 Hematuria, unspecified (principal); R10.9 Unspecified abdominal pain; I10 Essential (primary) hypertension; F17.210 Nicotine dependence, cigarettes, uncomplicated
CPT/HCPCS: 80053; 81001; 83690; 85025; 96361; 96374; 96375; 96376; 99284; C9113; J2270; J2405; J7030

== ENCOUNTER 2018-07-16 12:10 | Emergency (ER) | payer MEDICAID ==
[2018-07-16 12:16] VITALS: BMI 26.5
[2018-07-16 12:18] VITALS: TEMP 98.5
[2018-07-16] MEDS ORDERED: Naproxen 550 mg Tab PO STA (13:04)
[2018-07-16] MEDS ORDERED: Naproxen 550 mg Tab PO ONE (13:11)
--- NOTE | 2018-07-16 14:07 | RAD ---
Date of service: 07/16/2018 PROCEDURE: Radiographs of the left elbow. HISTORY: LEFT ELBOW PAIN R/O FX COMPARISON: No prior. TECHNIQUE: 3 views obtained. FINDINGS: BONES: Normal. No fracture. JOINTS: Arthrosis SOFT TISSUES: Triceps enthesophyte formation suggested. Triceps calcific tendinitis compatible with this. A concomitant calcific olecranon minimal bursitis cannot be excluded. JOINT EFFUSION: No anterior elbow joint effusion suggested. No large posterior olecranon bursitis noted. A minimal posterior olecranon bursitis is still possible. OTHER FINDINGS: None IMPRESSION: No fracture or lytic lesions. Other findings as above.
--- NOTE | 2018-07-16 14:15 | RAD ---
Date of service: 07/16/2018 PROCEDURE: Radiographs of the Chest and Left Ribs. HISTORY: LEFT POSTERIO RIB PAIN AFTER FALL COMPARISON: Comparison chest x-ray from 12/09/2017 is noted. TECHNIQUE: Frontal radiograph of the chest and multiple oblique radiographs of the left ribs were obtained. 4 views obtained. FINDINGS: LEFT RIBS: A tip left 10th rib fracture suggested. The fracture ends are approximately 2 mm. No further displacement suggested. More medial positioned radiolucencyies may represent additional posterior nondisplaced rib fractures-. Assessment here is more problematic due to the overlying confounding bowel gas LUNGS: Clear. PLEURA: No pneumothorax or pleural fluid. CARDIOVASCULAR: Normal cardiac size. No pulmonary vascular congestion. No aortic atherosclerotic calcification present OTHER FINDINGS: Multiple old healed posterior right upper rib fractures are present 3rd 4th 5th in 6 suggested. These are unchanged with the 12/09/2017 study. Well corticated ossifications/calcifications project inferior to the left of scapular coronoid process-subcoracoid bursal loose bodies here are 1 consideration. Glenohumeral joint loose bodies are another. IMPRESSION: Left 10th rib fracture tip more medial distal nondisplaced left 10th rib fractures possible. No pneumothorax or pleural effusion noted. Multiple old right upper rib fractures as referenced above. Appearance is similar. Left sub coracoid bursa loose bodies under glenohumeral joint loose bodies.
[2018-07-16 14:21] VITALS: BP 158/108; PULSE 84; RESP 20; O2SAT 98
--- NOTE | 2018-07-16 14:21 | C.PDOC ---
History Of Present Illness 43-year-old male presents to the ED for evaluation of left elbow pain and left lateral/posterior rib pain. He states that he slipped and fell into his bathroom sink approx one week ago. He denies head injury, loss of consciousness, shortness of breath, chest pain, abdominal pain, nausea/vomiting, dizziness. Time Seen by Provider: 07/16/18 12:24 Chief Complaint (Nursing): Back Pain History Per: Patient History/Exam Limitations: no limitations Onset/Duration Of Symptoms: Days Current Symptoms Are (Timing): Still Present Quality Of Discomfort: "Pain" Severity: Moderate Associated Symptoms: None. denies: Incontinence, New Weakness, New Numbness Additional History Per: Patient Past Medical History Reviewed: Historical Data, Nursing Documentation, Vital Signs Vital Signs: Last Vital Signs Temp 98.5 F 07/16/18 12:16 Pulse 91 H 07/16/18 12:16 Resp 18 07/16/18 12:16 BP 169/97 H 07/16/18 12:16 Pulse Ox 98 07/16/18 12:16 - Medical History PMH: HTN, Pancreatitis (x3) Surgical History: Hernia Repair - [facility] Procedures CL REDUC DISLOC-SHOULDER (08/14/13) EXCISION OF STOMACH, ENDO, DIAGN (09/17/17) IMMOBILIZ/WOUND ATTN NEC (08/14/13) INJECT/INFUSE NEC (08/14/13) Family History: States: No Known Family Hx - Social History Hx Tobacco Use: Yes Hx Alcohol Use: Yes Hx Substance Use: Yes (WEEDS) - Immunization History Hx Tetanus Toxoid Vaccination: No Hx Influenza Vaccination: No Hx Pneumococcal Vaccination: No Review Of Systems Constitutional: Negative for: Fever, Chills Cardiovascular: Negative for: Chest Pain, Palpitations Respiratory: Negative for: Shortness of Breath Gastrointestinal: Negative for: Nausea, Vomiting, Abdominal Pain Musculoskeletal: Positive for: Other (left elbow pain, left lateral/posterior rib pain ) Skin: Negative for: Rash Neurological: Negative for: Weakness, Numbness, Headache, Dizziness, Other (head injury, LOC ) Physical Exam - Physical Exam Appears: Well, Non-toxic, No Acute Distress Skin: Normal Color, Warm, Dry, No Rash Head: Atraumatic, Normacephalic Eye(s): bilateral: Normal Inspection Oral Mucosa: Moist Neck: No Midline Cervical Tenderness, No Paracervical Tenderness, No Step Off Deformity, Supple Chest: Symmetrical, No Deformity, Tenderness (to left lateral and posterior ribs, at approx T10-11 level), No Ecchymosis, No Subcutaneous Emphysema Cardiovascular: Rhythm Regular Respiratory: Normal Breath Sounds, No Rales, No Rhonchi, No Wheezing Gastrointestinal/Abdominal: Normal Exam, Bowel Sounds, Soft, No Tenderness Extremity: Normal ROM, Tenderness ((+) TTP of left elbow without swelling or deformity.), Capillary Refill (< 2sec all digits ), No Deformity, No Swelling Extremity: Bilateral: Normal Color And Temperature, Normal ROM Pulses: Left Radial: Normal, Right Radial: Normal Neurological/Psych: Oriented x3 Gait: Steady ED Course And Treatment O2 Sat by Pulse Oximetry: 98 (on RA) Pulse Ox Interpretation: Normal - Other Rad Ribs and Chest XR X-Ray: Viewed By Me, Read By Radiologist Interpretation: Date of service: 07/16/2018. PROCEDURE: Radiographs of the Chest and Left Ribs. HISTORY: LEFT POSTERIO RIB PAIN AFTER FALL. COMPARISON: Comparison chest x-ray from 12/09/2017 is noted. TECHNIQUE: Frontal radiograph of the chest and multiple oblique radiographs of the left ribs were obtained. 4 views obtained. FINDINGS: LEFT RIBS: A tip left 10th rib fracture suggested. The fracture ends are approximately 2 mm. No further displacement suggested. More medial positioned radiolucencyies may represent additional post erior nondisplaced rib fractures-. Assessment here is more problematic due to the overlying confounding bowel gas. LUNGS: Clear. PLEURA: No pneumothorax or pleural fluid. CARDIOVASCULAR: Normal cardiac size. No pulmonary vascular congestion. No aortic atherosclerotic calcification present. OTHER FINDINGS: Multiple old healed posterior right upper rib fractures are present 3rd 4th 5th in 6 suggested. These are unchanged with the 12/09/2017 study. Well corticated ossifications/calcifications project inferior to the left of scapular coronoid process-subcoracoid bursal loose bodies here are 1 consideration. Glenohumeral joint loose bodies are another. IMPRESSION: Left 10th rib fracture tip more medial distal nondisplaced left 10th rib fractures possible. No pneumothorax or pleural effusion noted. Multiple old right upper rib fractures as referenced above. Appearance is similar. Left sub coracoid bursa loose bodies under glenohumeral joint loose bodies. Left elbow XR X-Ray: Viewed By Me, Read By Radiologist Interpretation: Date of service: 07/16/2018. PROCEDURE: Radiographs of the left elbow. HISTORY: LEFT ELBOW PAIN R/O FX. COMPARISON: No prior. TECHNIQUE: 3 views obtained. FINDINGS: BONES: Normal. No fracture. JOINTS: Arthrosis. SOFT TISSUES: Triceps enthesophyte formation suggested. Triceps calcific tendinitis compatible with this. A concomitant calcific olecranon minimal bursitis cannot be excluded. JOINT EFFUSION: No anterior elbow joint effusion suggested. No large posterior olecranon bursitis noted. A minimal posterior olecranon bursitis is still possible. OTHER FINDINGS: None. IMPRESSION: No fracture or lytic lesions. Other findings as above. Progress Note: Xrays of chest/ribs and left elbow ordered and reviewed. Patient given PO Naprosyn. Reevaluation Time: 14:20 Reassessment Condition: Improved (Patient reassessed, is resting comfortably and pain has improved. Xray of ribs show left 10th rib fx, no PTX. Patient given Rxs for pain medication, and was instructed to follow up with PMD/clinic in 1-2 days. He understands he should return to ED if symptoms worsen.) Disposition Counseled Patient/Family Regarding: Studies Performed, Diagnosis, Need For Followup, Rx Given - Disposition Referrals: [facility] [Outside] Disposition: HOME/ ROUTINE Disposition Time: 14:20 Condition: STABLE Additional Instructions: FOLLOW UP WITH YOUR DOCTOR/CLINIC IN 1-2 DAYS USE MEDICATIONS NEEDED RETURN TO ER IF SYMPTOMS WORSEN Prescriptions: Hydrocodone/Acetaminophen [Hydrocodone-Acetamin 5-325 mg] 1 each PO Q6 PRN #15 tablet PRN Reason: PAIN Naproxen 375 mg PO BID PRN #20 tablet PRN Reason: pain Instructions: Rib Fracture (DC) Forms: [employer] (Slovenian) Print Language: SETSWANA - POA Present On Arrival: Falls Or Trauma - Clinical Impression Clinical Impression: Left rib fracture, Sprain of left elbow - Scribe Statement The provider has reviewed the documentation as recorded by the Scribe (Evelyn Fragoso) Provider Attestation: All medical record entries made by the Scribe were at my direction and personally dictated by me. I have reviewed the chart and agree that the record accurately reflects my personal performance of the history, physical exam, medical decision making, and the department course for this patient. I have also personally directed, reviewed, and agree with the discharge instructions and disposition.
== END 2018-07-16 14:27 | disposition home or self-care (01) ==
LOC: C.ER 12:10
DX: S22.32XA Fracture of one rib, left side, initial encounter for closed fracture (principal); S53.402A Unspecified sprain of left elbow, initial encounter; W01.0XXA Fall on same level from slipping, tripping and stumbling without subsequent striking against object, initial encounter

== ENCOUNTER 2018-07-25 15:54 | Emergency (ER) | payer MEDICAID ==
[2018-07-25 15:55] VITALS: BMI 26.5
[2018-07-25 16:02] VITALS: RESP 18; TEMP 99.4; O2SAT 98
[2018-07-25 17:12] VITALS: BP 158/90; PULSE 82
--- NOTE | 2018-07-25 17:12 | C.PDOC ---
History Of Present Illness 43 y/o male pt presents to the ER c/o paint next to his anus on the left fro x1 day. Pt denies fever, chills, and any other associated sx or complaints at this time. Time Seen by Provider: 07/25/18 16:50 Chief Complaint (Nursing): Abnormal Skin Integrity History Per: Patient History/Exam Limitations: no limitations Onset/Duration Of Symptoms: Days (x1) Current Symptoms Are (Timing): Still Present Past Medical History Reviewed: Historical Data, Nursing Documentation, Vital Signs Vital Signs: Last Vital Signs Temp 99.4 F 07/25/18 15:59 Pulse 78 07/25/18 15:59 Resp 18 07/25/18 15:59 BP 161/113 H 07/25/18 15:59 Pulse Ox 98 07/25/18 15:59 - Medical History PMH: HTN, Pancreatitis (x3) Surgical History: Hernia Repair - [facility] Procedures CL REDUC DISLOC-SHOULDER (08/14/13) EXCISION OF STOMACH, ENDO, DIAGN (09/17/17) IMMOBILIZ/WOUND ATTN NEC (08/14/13) INJECT/INFUSE NEC (08/14/13) Family History: States: Unknown Family Hx - Social History Hx Tobacco Use: Yes Hx Alcohol Use: Yes Hx Substance Use: Yes (WEEDS) - Immunization History Hx Tetanus Toxoid Vaccination: No Hx Influenza Vaccination: No Hx Pneumococcal Vaccination: No Review Of Systems Except As Marked, All Systems Reviewed And Found Negative. Constitutional: Negative for: Fever, Chills Musculoskeletal: Positive for: Other (pain next to anus on the left) Physical Exam - Physical Exam Appears: Non-toxic, No Acute Distress Skin: Warm, Dry Head: Normacephalic Eye(s): bilateral: EOMI Cardiovascular: Rhythm Regular Respiratory: Normal Breath Sounds Rectal: Other (induration of skin next to anus; +swelling, +tenderness; no fluctuance ) Neurological/Psych: Oriented x3, Normal Speech ED Course And Treatment O2 Sat by Pulse Oximetry: 98 (RA) Pulse Ox Interpretation: Normal Progress Note: Plans: -- clindamycin. Pt was instructed to come back if condition worsens Disposition - Disposition Referrals: Kaden March MD [Staff Provider] - Disposition: HOME/ ROUTINE Disposition Time: 17:11 Condition: STABLE Additional Instructions: Follow up with PMD within 1-2 days. Return to ED if feel worse. Prescriptions: Clindamycin [Cleocin] 300 mg PO Q6 #28 cap Instructions: Skin Abscess Forms: [facility] (Andorran) - Clinical Impression Clinical Impression: Abscess - PA / [employer] / Resident Statement MD/ has reviewed & agrees with the documentation as recorded. - Scribe Statement The provider has reviewed the documentation as recorded by the Scribe Charlee James All medical record entries made by the Scribe were at my direction and personally dictated by me. I have reviewed the chart and agree that the record accurately reflects my personal performance of the history, physical exam, medical decision making, and the department course for this patient. I have also personally directed, reviewed, and agree with the discharge instructions and disposition.
== END 2018-07-25 17:15 | disposition home or self-care (01) ==
LOC: C.ER 15:54
DX: K61.0 Anal abscess (principal); I10 Essential (primary) hypertension; Z72.0 Tobacco use